=== PATIENT | male | born 1965 | race Caucasian/White ===

== ENCOUNTER 2024-12-16 14:39 | Emergency (ER) | payer BC, SELFPAY ==
[2024-12-16 14:46] VITALS: BP 122/80
[2024-12-16 15:00] VITALS: BP 129/99
--- NOTE | 2024-12-16 15:00 | ED.GENMED ---
History of Present Illness
General
Chief Complaint: Fall
Source: patient
Time Seen by Provider: 12/16/24 14:53
History of Present Illness
History of Present Illness:
59-year-old male presenting to the ER from home via EMS for evaluation after he had a syncopal episode while in his bathroom, patient had a prostate biopsy with urology earlier today at 1045, notes that he had gone to urinate approximately 5 or 6
times in a row in 20 minutes and it was mostly blood, patient started to feel lightheaded and sat down on the toilet, he had already contacted the urology office at the time who was able to transfer the patient to EMS and apparently while on the
phone with EMS had the syncopal episode. Patient has an abrasion to the right maxillary region, he offers no other concerns at this time and states he is feeling quite well. He notes that he has syncopized once before and felt similar/had
prodromal symptoms prior as well. Patient is currently denying any pain, chest pain, palpitations, shortness of breath or any other concerns.
Past History
Past History
ED Past Medical History: None
ED Past Surgical History: Orthopedic
Social History
Tobacco: Non-smoker
Alcohol: None
Drug: None
Personal:
Living: with family
Review of Systems
Review of Systems
All Other Systems: ROS reviewed and negative except as documented in HPI and ROS
Phy Exam
Physical Exam
Physical Exam:
GENERAL: Alert , in no apparent distress
EYE: clear conjunctiva b/l, no periorbital edema or ecchymosis
HEAD: Small abrasion to the maxillary region on the right
ENT: o/p clr, mmm.
CARDIAC: Regular rate and rhythm .
LUNGS: Clear breath sounds bilaterally, no acute respiratory distress, no wheezes/rales/rhonchi
ABDOMEN: Soft, without focal tenderness, no r/g, no cvat
NEUROLOGICAL: Alert and oriented
SKIN: Warm and dry, skin intact.
MUSCULOSKELETAL: well perfused.
PSYCH: Normal and appropriate interaction.
Scores
Heart Failure Risk
Heart Failure Risk Score: Not Applicable
Heart Score for Chest Pain Patients
STEMI patient?: Not applicable
Withdrawal Assessment of Alcohol
Withdrawal Assessment Completed?: Not applicable
Course
Orders/Labs/Results
Orders:
Orders
12/16/24 14:53
0.9% Sodium Chloride 1000 ml [Nss] 1,000 ml IV BOLUS
12/16/24 14:54
Electrocardiogram (*1) Urgent
Reason for Study: Syncope
EKG- Treatment ONCE
12/16/24 15:12
Basic Metabolic Panel Urgent
Complete Blood Count/With Diff Urgent
Abnormal Lab Results
12/16/24
15:12
RBC 3.75 L 10^6/uL
(4.70-6.10)
Hgb 12.2 L g/dL
(13.0-18.0)
Hct 36.8 L %
(39.0-52.0)
MCV 98.1 H fL
(80.0-94.0)
MCH 32.5 H pg
(27.0-31.0)
MPV 11.1 H fL
(7.4-10.4)
Neutrophils % 75.4 H %
(42.2-75.2)
Lymphocytes % 16.2 L %
(20.5-51.1)
Glucose 124 H mg/dl
(70-99)
12/16/24 15:12
12/16/24 15:12
Vital Signs
Initial and Last Documented VS:
Initial Vital Signs
Pulse Resp
65 15
12/16/24 14:45 12/16/24 14:45
Last Documented Vital Signs
Temp Pulse Resp BP Pulse Ox
97.9 F 63 13 134/76 100
12/16/24 14:46 12/16/24 16:15 12/16/24 16:15 12/16/24 16:00 12/16/24 16:15
MDM/Problems Addressed
Differential Diagnosis Includes:
Vagal event
Orthostasis
Cardiac Arrhythmia
Anemia
Electrolyte Imbalance
Seizure
MDM/Problems Addressed:
59-year-old male presented to the ER for evaluation of what appears to be a syncopal episode following a procedure done earlier today. Patient asymptomatic at present time and otherwise feels well. Hemodynamically stable. I do suspect a vagal
event is the most likely diagnosis. Will check labs, EKG and keep on telemetry. While awaiting testing will treat with IV fluids. Will notify urology.
*Pulse Oximetry
SaO2: 98
Oxygen Mode of Delivery: Room air
Patient hypoxic: no
*EKG
Heart Rate: 60
Rate: normal
Rhythm: sinus
[place]: normal axis
Ischemia: no ischemia
*Switch Operator Interpretation
Rate: normal
Heart Rate: 62
Rhythm: sinus
*Critical Care Note
Total Time (30-74mins, 75-104mins- exclusive of procedures): Not Applicable
Patient Management
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
Escalation/DeEscalation of care consider admission/obs:
Notified urology about patient's visit to the emergency department. They agree symptoms are likely vagal in nature. Patient has remained hemodynamically stable and overall well-appearing. Patient's son is in the emergency department and will be
taking patient home. Patient was advised on return precautions to the ER but is otherwise stable for discharge home.
ED Attending Note
-
Portions of this chart may have been created with voice recognition software.� Occasional wrong word or��sound alike� substitutions may have occurred due to the inherent limitations of voice recognition software.
Discharge Plan
Departure
Patient Disposition: Home (Routine Discharge)
Date of Disposition: 12/16/24
Time of Disposition: 16:24
Patient with high blood pressure during this ER visit?: No
Discharge Problem:
Vasovagal episode
Instructions: Syncope (fainting) (DC)
Prescriptions:
No Action
multivitamin [Multi-Day] 1 EACH tablet
1 tab PO DAILY
lisinopril-hydrochlorothiazide 1 EACH tablet
1 ea PO DAILY Qty: 60 6RF
cyclobenzaprine 10 MG tablet
10 mg PO TIDPRN PRN (Reason: spasm) Qty: 9 0RF
Referrals:
Roger Ramirez DO [Family Provider, Family Practice]
Interventions
Interventions:
*Risk Screen - Suicide Last Done: 12/16/24 16:30
*General Assessment Last Done: 12/16/24 14:53
*Neglect/Abuse Screening Last Done: 12/16/24 14:53
*ED- Fall Risk Assessment Last Done: 12/16/24 14:53
*ED COVID-19 Vaccine History Last Done: 12/16/24 14:53
*ED Influenza Vaccine History Last Done: 12/16/24 14:53
*Nursing Disposition Last Done: 12/16/24 16:30
ED-Musculoskeletal Assessment Last Done: 12/16/24 14:53
ED- Neurological Assessment Last Done: 12/16/24 14:53
ED-Skin Assessment Last Done: 12/16/24 14:53
Discharge Date and Time
Discharge Date/Time: 12/16/24 16:45
Print Language: SLOVAK
[2024-12-16] MEDS: NSS 1000 IV (15:07)
[2024-12-16 15:21] LABS: Hematocrit 36.8 % (39.0-52.0); Hemoglobin 12.2 g/dL (13.0-18.0); Mean Corp Hgb Conc. 33.2 g/dL (33.0-37.0); Mean Corpuscular Volume 98.1 fL (80.0-94.0); Nucleated Red Blood Cells % 0 % (-); Platelet Count 147 10^3/uL (130-400); Red Cell Dist. Width 12.8 % (11.5-14.5)
[2024-12-16 15:47] LABS: Blood Urea Nitrogen 20 mg/dl (9-20); Calcium 8.8 mg/dl (8.4-10.2); Carbon Dioxide 28 mmol/L (22-30); Chloride 105 mmol/L (98-107); Estimated Creatinine Clearance 108 ml/min; Glucose 124 mg/dl (70-99); Potassium 4.8 mmol/L (3.5-5.1); Sodium 136 mmol/L (135-145); eGFR > 60.00
[2024-12-16 15:52] VITALS: BP 130/71
[2024-12-16 16:00] VITALS: BP 134/76
== END 2024-12-16 16:45 | disposition home or self-care (01) ==
LOC: EMR 14:39
PROVIDERS: Physician Assistant Medical; EMERGENCY PHYSICIAN Emergency Medicine; FAMILY PHYSICIAN Family Medicine
DX: R55 Syncope and collapse (principal)
CPT/HCPCS: 99283; 96360; 80048; 85025; 93005

== ENCOUNTER → 2024-12-31 09:17 | Outpatient (REF) | payer BC, SELFPAY | LOC: MRI 3T 09:17 | PROVIDERS: ATTENDING PHYSICIAN Surgery; FAMILY PHYSICIAN Family Medicine | DX: C61 Malignant neoplasm of prostate (principal) | CPT/HCPCS: 72197; A9575 ==

== ENCOUNTER 2025-01-05 08:32 | Outpatient (RCR) | payer BC, SELFPAY | END 2025-01-05 23:59 | disposition home or self-care (01) | LOC: RPT 08:32 | PROVIDERS: ATTENDING PHYSICIAN Student in an Organized Health Care Education/Training Program; FAMILY PHYSICIAN Family Medicine | DX: C61 Malignant neoplasm of prostate (principal); M62.89 Other specified disorders of muscle; Z73.6 Limitation of activities due to disability | CPT/HCPCS: 97112; 97162; 97530 ==

== ENCOUNTER → 2025-01-11 13:28 | Outpatient (REF) | payer BC, SELFPAY | LOC: PET 13:28 | PROVIDERS: ATTENDING PHYSICIAN Surgery | DX: C61 Malignant neoplasm of prostate (principal) | CPT/HCPCS: 78815 ==

== ENCOUNTER 2025-01-25 06:08 | Day surgery (SDC) | payer BC, SELFPAY ==
[2025-01-13 13:46] VITALS: BMI 28.1
[2025-01-13 14:21] LABS: INR 0.97; PT 13.1 Sec (11.4-14.6)
[2025-01-13 14:22] LABS: APTT 28.3 Sec (23.4-35.0)
--- NOTE | 2025-01-19 15:37 | VNURNOTE ---
Addendum entered by Nicol Rangel RN 01/26/25 09:45:
Home Health Liaison met with patient at bedside to discuss [facility] nurse/therapy, visits, schedule and homebound status. Patient is agreeable and understands that visits at home will be 1-2 x per week to assess and teach medical and gilmore management.
Patient is aware that [facility] will contact them for start of care within a few days after discharge from . Provided contact number for [facility].
[facility] referral accepted in [facility].
Original Note:
Chart reviewed. per liaison email, pt to receive HH post op after [place] prostatectomy 01/25. Referral placed in [facility]. Will follow up with pt post op.
[2025-01-25] VITALS (8 sets, daily range): BP systolic 97–149; BP diastolic 55–98; BMI 28.1
[2025-01-25] MEDS: NORMOSOL-R/PLASMALYTE-A 1000 IV ×2 (07:04→14:12)
--- NOTE | 2025-01-25 13:12 | W.SUR.POST ---
Surgical Immediate Post Op
Note
Pre Op Diagnosis: Prostate Cancer
Post Op Diagnosis: Same
Procedure Performed: Robotic radical prostatectomy, pelvic lymph node dissection
Primary Surgeon: Laine
Anesthesia: GET
Estimated Blood Loss: 150cc
Fluids: 2.7L
Drains/Shunts: 18F gilmore, 10cc balloon
Specimens/Cultures:
- Periprostatic fat
- Right pelvic LNs
- Left pelvic LNs
- Prostate and seminal vesicles
Complications: None
Operative Findings: See operative report
[2025-01-25 13:14] LABS: Hematocrit 33.0 % (39.0-52.0); Hemoglobin 10.6 g/dL (13.0-18.0)
[2025-01-25] MEDS: TORADOL 15 MG IV ×2 (13:17→18:21)
[2025-01-25 13:35] LABS: Blood Urea Nitrogen 16 mg/dl (9-20); Calcium 8.0 mg/dl (8.4-10.2); Carbon Dioxide 27 mmol/L (22-30); Chloride 103 mmol/L (98-107); Estimated Creatinine Clearance 111 ml/min; Glucose 135 mg/dl (70-99); Potassium 4.6 mmol/L (3.5-5.1); Sodium 134 mmol/L (135-145); eGFR > 60.00
--- NOTE | 2025-01-25 15:22 | PTCARENOTE ---
Pt arrived to [facility] s/p robotic radical prostatectomy, pelvic lymph node dissection. 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 94% on 2L. Knee high teds/scds on pt. Pt tolerating clears. Admission questions answered. Bed locked and in lowest position. Care
ongoing.
[2025-01-25] MEDS: COLACE 100 MG PO (16:15)
[2025-01-25] MEDS: LOVENOX 40 MG SC (18:21)
[2025-01-25] MEDS: ZESTRIL 20 MG PO (19:53)
[2025-01-25] MEDS: POLYSPORIN/DOUBLE ANTIBIOTIC 1 APPLIC TOPICAL (19:53)
[2025-01-26] MEDS: NORMOSOL-R/PLASMALYTE-A 1000 IV (00:06)
[2025-01-26] MEDS: TORADOL 15 MG IV ×2 (00:07→06:32)
[2025-01-26 03:19] VITALS: BP 114/68
[2025-01-26 06:22] LABS: Hematocrit 28.3 % (39.0-52.0); Hemoglobin 9.1 g/dL (13.0-18.0); Mean Corp Hgb Conc. 32.2 g/dL (33.0-37.0); Mean Corpuscular Volume 92.8 fL (80.0-94.0); Platelet Count 207 10^3/uL (130-400); Red Cell Dist. Width 13.1 % (11.5-14.5)
[2025-01-26] MEDS: COLACE 100 MG PO ×2 (06:33→12:00)
[2025-01-26 06:35] LABS: Blood Urea Nitrogen 17 mg/dl (9-20); Calcium 7.9 mg/dl (8.4-10.2); Carbon Dioxide 29 mmol/L (22-30); Chloride 98 mmol/L (98-107); Estimated Creatinine Clearance 99 ml/min; Glucose 109 mg/dl (70-99); Potassium 4.3 mmol/L (3.5-5.1); Sodium 130 mmol/L (135-145); eGFR > 60.00
[2025-01-26 07:00] VITALS: BP 121/69
--- NOTE | 2025-01-26 07:49 | W.PN.URO.CBU ---
Today's Communication / Plan
-
H/H at 1100 - if Hgb stable > plan for discharge home today
F/u 02/03 for catheter removal in office
Assessment / Plan
-
59M with HR general agent s/p RALP, PLND on 01/25/25
Plan:
- H/H at 1100 - if Hgb stable > plan for discharge
- Discussed with pt that his gilmore may get bloody if he walks a lot - if that happens he should take it easy
- Continue regular diet
- DC IVF
- Pain control PRN
- Ambulate
Diagnosis
-
Date of Service: January 26, 2025
-
Patient Diagnosis:
Post Op Day:
Subjective
-
Doing well this morning.
Pain controlled
Tolerating dinner/regular food - no passing flatus yet, no BM
Ambulating plenty already
No nausea/vomiting
Objective
-
Vital Signs
Temp Pulse Resp BP Pulse Ox
98.4 F 85 16 114/68 100
01/26/25 03:19 01/26/25 03:19 01/26/25 03:19 01/26/25 03:19 01/26/25 03:19
Intake and Output
01/25/25 01/26/25 01/27/25
06:59 06:59 06:59
Intake Total 3419 / 3420
Output Total 1949
Balance 1470 / 1470
Intake:
Oral fluids 1919
IV fluids (Total) 1500 / 1500
Output:
Urine, [place] 1949
Other:
Number of unmeasured liquid
stools
Rectum 1
Laboratory Results
01/26/25 05:38
01/26/25 05:38
Physical Exam
-
General - well developed, well nourished, no acute distress
Chest - clear bilaterally
Abdomen - soft, non-tender, incisions c/d/i
Genitalia - normal, gilmore pink to light red
Skin - warm & dry with no rash
Neuro - AOx3, no motor deficits
Extremities - no edema
[2025-01-26] MEDS: ZESTRIL 20 MG PO (08:31)
[2025-01-26] MEDS: LIPITOR 10 MG PO (08:32)
[2025-01-26] MEDS: POLYSPORIN/DOUBLE ANTIBIOTIC 1 APPLIC TOPICAL (08:32)
--- NOTE | 2025-01-26 08:40 | CM ---
CM met with patient and in room. Patient does not have a history of VN or SNF. Patient is agreeable to [facility]. [facility] Admission RN made aware.
PLAN: home with [facility]
[2025-01-26 11:00] VITALS: BP 124/66
[2025-01-26 11:16] LABS: Hematocrit 26.4 % (39.0-52.0); Hemoglobin 8.6 g/dL (13.0-18.0)
[2025-01-26] MEDS: TORADOL IV (12:00)
--- NOTE | 2025-01-26 14:00 | W.PN.UPDATE ---
Update Note
Progress Note Update
Examined patient and reviewed labs. He has been resting since the morning, urine has cleared up significantly. Now clear yellow and afternoon dose of ketorolac was held.
He is doing well. Tolerating diet, passing flatus. No light-headedness or dizziness. Feels well to go home.
== END 2025-01-26 14:48 | disposition home or self-care (01) ==
LOC: SDS 06:08
PROVIDERS: ATTENDING PHYSICIAN Student in an Organized Health Care Education/Training Program; FAMILY PHYSICIAN Family Medicine
DX: C61 Malignant neoplasm of prostate (principal)
CPT/HCPCS: 38571; 36415; 80048; 85014; 85018; 85027; 85610; 85730; 86850; 86900; 86901; 88305; 88307; 88309

== ENCOUNTER 2025-02-20 10:28 | Outpatient (RCR) | payer BC, SELFPAY | END 2025-02-20 23:59 | disposition home or self-care (01) | LOC: RPT 10:28 | PROVIDERS: ATTENDING PHYSICIAN Student in an Organized Health Care Education/Training Program; FAMILY PHYSICIAN Family Medicine | DX: C61 Malignant neoplasm of prostate (principal); M62.89 Other specified disorders of muscle; Z73.6 Limitation of activities due to disability; Z90.79 Acquired absence of other genital organ(s); Z98.890 Other specified postprocedural states | CPT/HCPCS: 97110; 97112; 97164; 97530 ==